=== PATIENT | female | born 1980 | race Caucasian/White ===

== ENCOUNTER 2019-01-16 09:11 | Outpatient (CLI) | payer BC ==
--- NOTE | 2019-01-16 10:34 | ULT ---
BILATERAL RENAL ULTRASOUND: HISTORY: Followup renal cysts. COMPARISON: Comparison is made to prior ultrasound examination 06/27/[address] [facility]. FINDINGS: The right kidney measures 9.7 x 4.0 x 4.3 cm. The left kidney measures 10.1 x 4.6 x 4.5 cm. No renal hydronephrosis or perinephric process. The b ladder is unremarkable, but nearly empty. Two small left renal cysts, one measuring 0.8 x 0.8 x 0.9 cm and a second one measuring 1.0 x 1.7 x 1.6 cm. IMPRESSION: Two small left renal cysts, stable from prior study. No renal hydronephrosis or other acute process. POS: [facility]
== END 2019-01-16 09:12 | disposition home or self-care (01) ==
LOC: BICULT 09:11
PROVIDERS: ATTEND Family Medicine
DX: N28.1 Cyst of kidney, acquired (principal)
CPT/HCPCS: 76770

== ENCOUNTER 2023-03-20 14:30 | Outpatient (CLI) | payer BC | END 2023-03-20 14:31 | disposition home or self-care (01) | LOC: BICMAMMO 14:30 | PROVIDERS: ATTEND Family Medicine | DX: Z12.31 Encounter for screening mammogram for malignant neoplasm of breast (principal) | CPT/HCPCS: 77063; 77067 ==

== ENCOUNTER 2024-04-18 14:47 | Outpatient (CLI) | payer BC | END 2024-04-18 14:48 | disposition home or self-care (01) | LOC: BICMAMMO 14:47 | PROVIDERS: ATTEND Obstetrics & Gynecology | DX: Z12.31 Encounter for screening mammogram for malignant neoplasm of breast (principal) | CPT/HCPCS: 77063; 77067 ==